=== PATIENT | male | born 1940 | race Caucasian/White ===

== ENCOUNTER 2018-01-31 14:53 | Emergency (ER) | payer MEDICARE, MEDICAID ==
[2018-01-31 15:37] VITALS: RESP 18
[2018-01-31] MEDS ORDERED: Piperacillin/Tazobact 3.375 GM in Sodium Chloride 0.9% 100 ML IVPB STA (16:15)
[2018-01-31 16:54] LABS: BASO % 0.6 % (0.0-2.0); EOS # 0.3 K/uL (0.0-0.7); EOS % 5.7 % (0.0-4.0); HEMOGLOBIN 11.3 g/dL (12.0-18.0); LYMPH # 1.3 K/uL (1.0-4.3); LYMPH % 25.4 % (20.0-40.0); MEAN CELL VOLUME 88.8 fl (80.0-94.0); MEAN CORPUSCULAR HEMOGLOBIN 29.4 pg (27.0-31.0); MEAN CORPUSCULAR HGB CONC 33.2 g/dL (33.0-37.0); MEAN PLATELET VOLUME 7.7 fl (7.2-11.7); MONO # 0.5 K/uL (0.0-0.8); MONO % 9.3 % (0.0-10.0); NEUT # 3.1 K/uL (1.8-7.0); RBC 3.83 Mil/uL (4.40-5.90); RED CELL DISTRIBUTION WIDTH 14.4 % (11.5-14.5); WHITE BLOOD COUNT 5.3 K/uL (4.8-10.8)
[2018-01-31] MEDS ORDERED: Piperacillin/Tazobact 3.375 gm Inj IVPB ONE (16:58)
--- NOTE | 2018-01-31 16:59 | RAD ---
PROCEDURE: Right Foot Radiographs. HISTORY: R 3rd toe infection COMPARISON: None. FINDINGS: BONES: No acute fractures. Evidence of healed 2nd metatarsal fracture. Degenerative/erosive changes tarsal 1st metatarsal joint. JOINTS: Multiple hammertoe deformities. SOFT TISSUES: Soft tissue swelling 3rd digit without radiographic findings of acute osteomyelitis. OTHER FINDINGS: Incompletely visualized orthopedic hardware right ankle. IMPRESSION: Soft tissue swelling without acute articular or osseous abnormality.
[2018-01-31 17:01] LABS: VENOUS BLOOD GAS BASE EXCESS 0.7 mmol/L (0.0-2.0); VENOUS BLOOD GAS PCO2 54 mmHg (40-60); VENOUS BLOOD GAS PO2 28 mm/Hg (30-55); VENOUS BLOOD PH 7.32 (7.32-7.43)
[2018-01-31 17:06] LABS: ALB/GLOB RATIO 1.3 (1.0-2.1); ALBUMIN 4.2 g/dL (3.5-5.0); ALT/SGPT 32 U/L (21-72); AST/SGOT 35 U/L (17-59); BLOOD UREA NITROGEN 27 mg/dl (9-20); CALCIUM 9.4 mg/dL (8.4-10.2); GFR AFRICAN-AMERICAN > 60; GFR NON-AFRICAN AMERICAN 53
--- NOTE | 2018-01-31 17:09 | CP.PCM.CON ---
History of Present Illness - History of Present Illness History of Present Illness: 77 y/o male with PMHx of DM, CAD, HTN and HLD seen in ED after consultation for right foot 3rd digit swelling. Pt's family states he bumped it 3 days ago and since then they have noticed it turn red and swollen. They admit to seeing some drainage from the toe, unsure if it was blood or pus. Family denies pt experiencing any F/C/N/V/CP/SOB. Pt is known to Dr. 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 Pt's family say they contacted Dr. Sharpe earlier today who referred them to come here and be seen by Dr. Bolivar and podiatry residents. Pt has no other pedal complaints PSHx: denies All: NKDA Review of Systems - Review of Systems All systems: reviewed and no additional remarkable complaints except (per HPI) Past Patient History - Past Social History Smoking Status: Unknown If Ever Smoked - CARDIAC Hx Hypertension: Yes - MUSCULOSKELETAL/RHEUMATOLOGICAL Hx Arthritis: Yes - PSYCHIATRIC Hx Substance Use: No Meds Allergies/Adverse Reactions: Allergies Allergy/AdvReac Type Severity Reaction Status Date / Time No Known Allergies Allergy Verified 09/16/14 19:53 - Medications Medications: Current Medications Vancomycin HCl 1 gm/ Sodium (Chloride) 250 mls @ 166.667 mls/hr IVPB STAT STA PRN Reason: Protocol Stop: 01/31/18 17:44 Piperacillin Sod/Tazobactam (Sod 3.375 gm/ Sodium Chloride) 100 mls @ 100 mls/ hr IVPB STAT STA PRN Reason: Protocol Stop: 01/31/18 17:14 Last Admin: 01/31/18 17:02 Dose: 100 mls/hr Physical Exam - Constitutional Appears: Well, Non-toxic, No Acute Distress - Extremities Exam Additional comments: RLE focused exam: Vasc: DP/PT pulses palpable 2/4. Temperature gradient warm to cool from proximal to distal - increased warmth noted to 3rd digit dorsally. Localized edema noted to 3rd digit. CFT < 3 sec to all other digits; unable to assess to 3rd digit Derm: Cellulitis noted to entirety of 3rd digit with hyperkeratotic cap noted to distal tip of digit. Post debridement of tissue, no underlying ulceration noted. Mild maceration noted to plantar aspect of digit. No active drainage, no malodor, no fluctuance present Neuro: Protective sensation mildly diminished Ortho: No tenderness to palpation of 3rd digit - Neurological Exam Neurological exam: Alert, Oriented x3 - Psychiatric Exam Psychiatric exam: Normal Affect, Normal Mood Results - Vital Signs Recent Vital Signs: Last Vital Signs Temp 98.8 F 01/31/18 15:31 Pulse 80 01/31/18 15:31 Resp 18 01/31/18 15:31 BP 141/69 01/31/18 15:31 Pulse Ox 98 01/31/18 15:31 - Labs Result Diagrams: 01/31/18 16:35 01/31/18 16:35 Labs: Laboratory Results - last 24 hr 01/31/18 01/31/18 01/31/18 16:30 16:35 16:35 WBC 5.3 RBC 3.83 L Hgb 11.3 L Hct 34.0 L MCV 88.8 MCH 29.4 MCHC 33.2 RDW 14.4 Plt Count 259 MPV 7.7 Neut % (Auto) 59.0 Lymph % (Auto) 25.4 [place] % (Auto) 9.3 Eos % (Auto) 5.7 H Baso % (Auto) 0.6 Neut # (Auto) 3.1 Lymph # (Auto) 1.3 [place] # (Auto) 0.5 Eos # (Auto) 0.3 Baso # (Auto) 0.0 pO2 28 L VBG pH 7.32 VBG pCO2 54 VBG HCO3 24.1 VBG Total CO2 29.5 H VBG O2 Sat (Calc) 52.1 VBG Base Excess 0.7 VBG Potassium 4.2 Sodium 138.0 144 Chloride 107.0 103 Glucose 159 H Lactate 1.3 FiO2 21.0 Potassium 4.3 Carbon Dioxide 25 Anion Gap 20 BUN 27 H Creatinine 1.3 Est GFR ( Amer) > 60 Est GFR (Non-Af Amer) 53 Random Glucose 150 H Calcium 9.4 Total Bilirubin 0.3 AST 35 ALT 32 Alkaline Phosphatase 110 Total Protein 7.5 Albumin 4.2 Globulin 3.3 Albumin/Globulin Ratio 1.3 Venous Blood Potassium 4.2 Assessment & Plan - Assessment and Plan (Free Text) Assessment: 77 y/o diabetic male with right foot 3rd digit cellulitis with localized edema Plan: Pt seen and evaluated in ED Discussed plan with attending Dr. Bolivar Labs and vitals reviewed - afebrile, WBC 5.3 X-ray of R foot reveals soft tissue swelling without any acute articular or osseous abnormalities 3rd digit aseptically debrided of all thickened hyperkeratotic tissue, revealing intact skin with no underlying ulceration 3rd digit dressed with bacitracin and DSD Single dose of IV Vancomycin and Zosyn given in ED Pt advised that due to Dr. Sharpe being out of town this week, pt to follow up tomorrow with Dr. Bolivar in the wound care center Thank you for this consult
--- NOTE | 2018-01-31 17:38 | ED PDOC ---
Lower Extremity Pain/Injury Time Seen by Provider: 01/31/18 16:14 Chief Complaint (Nursing): Lower Extremity Problem/Injury History Per: Patient, Family ( and son) Additional Complaint(s): Pt. states he has pain and redness and swelling to the R 3rd toe. As per his son they noticed his feet were normal 3 days ago but last night his saw that the toe was swollen and red. Denies trauma, fever, numbness, tingling, discharge. Pt. contacted Dr. Sharpe, integration software engineer, who advised pt. to come to ED. Past Medical History Reviewed: Historical Data, Nursing Documentation, Vital Signs Vital Signs: Last Vital Signs Temp 98.8 F 01/31/18 15:31 Pulse 80 01/31/18 15:31 Resp 18 01/31/18 15:31 BP 141/69 01/31/18 15:31 Pulse Ox 98 01/31/18 15:31 - Medical History PMH: Arthritis, CAD, Diabetes, HTN, Hyperlipidemia - Family History Family History: States: No Known Family Hx - Home Medications Home Medications: Ambulatory Orders Medication Instructions Recorded Aspirin [Ecotrin] 81 mg PO Q12 01/31/18 MetFORMIN [glucoPHAGE] 1,000 mg PO BID 01/31/18 Multivitamin [Multi-Vitamin Daily] 1 tab PO DAILY 01/31/18 [place]-3 Fatty Acids/Fish Oil [Eql 1 cap PO Q12 01/31/18 [place]-3 Fish Oil 1,000 mg] Ranitidine HCl [Zantac 75] 75 mg PO DAILY 01/31/18 Tamsulosin [Flomax] 0.4 mg PO HS 01/31/18 Temazepam [Restoril] 15 mg PO HS 01/31/18 amLODIPine [Norvasc] 10 mg PO HS 01/31/18 - Allergies Allergies/Adverse Reactions: Allergies Allergy/AdvReac Type Severity Reaction Status Date / Time No Known Allergies Allergy Verified 09/16/14 19:53 Review of Systems ROS Statement: Except As Marked, All Systems Reviewed And Found Negative Physical Exam - Physical Exam Appears: Positive for: Well, Non-toxic, No Acute Distress Skin: Positive for: Normal Color, Warm. Negative for: Rash Eye Exam: Positive for: Normal appearance Pulses-Dorsalis Pedis (L): 2+ Pulses-Dorsalis Pedis (R): 2+ Extremity: Positive for: Other (RIGHT LOWER EXTREMITY: R 3rd toe with moderate, erythema, and edema on dorsal surface with maceration noted on plantar surface without streaking or discharge or foul odor). Negative for: Calf Tenderness (b/ l) Neurologic/Psych: Positive for: Alert, Oriented - Laboratory Results Result Diagrams: 01/31/18 16:35 01/31/18 16:35 - ECG O2 Sat by Pulse Oximetry: 98 - Progress ED Course And Treament: Labs, zosyn IV, vancomycin IV, foot x-ray ordered. Case d/w Valencia, podiatry resident who saw pt. in ED and spoke with Dr. Bolivar who requests that pt. be dc'd and f/u in wound care clinic tomorrow. As per Valencia pt. can be dc'd without Rx for antibiotic as pt. is f/u tomorrow. Disposition - Clinical Impression Clinical Impression: Cellulitis, toe - Patient ED Disposition Is Patient to be Admitted: No - Disposition Referrals: [facility] [Outside] Disposition: Routine/Home Disposition Time: 17:37 Condition: STABLE Additional Instructions: GO TO WOUND CARE CENTER TOMORROW WITHOUT FAIL Instructions: Cellulitis (Skin Infection), Adult (DC) Forms: [place] (Haitian) Print Language: SINHALA
[2018-01-31 20:50] VITALS: BP 126/73; PULSE 75; TEMP 98.1; O2SAT 96
== END 2018-01-31 20:50 | disposition home or self-care (01) ==
LOC: H.ER 14:53
DX: L03.031 Cellulitis of right toe (principal); E11.9 Type 2 diabetes mellitus without complications; E78.5 Hyperlipidemia, unspecified; I10 Essential (primary) hypertension; Z79.84 Long term (current) use of oral hypoglycemic drugs; I25.10 Atherosclerotic heart disease of native coronary artery without angina pectoris; Z79.82 Long term (current) use of aspirin
CPT/HCPCS: 73630; 80053; 82803; 82948; 85025; 87040; 96365; 99284; J2543